=== PATIENT | female | born 1940 | race Caucasian/White ===

== ENCOUNTER 2020-11-19 00:35 | Inpatient (IN) ==
[2020-11-19] MEDS ORDERED: dexAMETHasone**PF** 10 MG/ML VIAL IV ONE (00:41)
[2020-11-19] MEDS ORDERED: ALBUT/IPRATROP 3MG/0.5MG NEB 3 ML VIAL INH STA (00:41)
[2020-11-19] MEDS ORDERED: SODIUM CHLORIDE 0.9% 1000ML 1,000 ML IV STA (00:44)
[2020-11-19] MEDS ORDERED: SODIUM CHLORIDE 0.9% 1000ML 250 ML IV ONE (00:44)
[2020-11-19 01:19] LABS: Influenza A virus by PCR Negative (Negative); Influenza B virus by PCR Negative (Negative)
[2020-11-19 01:33] LABS: Hematocrit (blood only) 35.6 % (37-47); Hemoglobin 11.2 g/dL (12.0-16.0); Mean Corpuscular Hemoglobin 25.2 pg (25-34); Mean Corpuscular Hgb Conc 31.5 g/dL (32-36); Mean Platelet Volume 9.2 fL (7.4-10.4); Platelet Count 457 K/uL (130-400); RDW Standard Deviation 46.6 fL (36.4-46.3); Red Blood Count 4.45 M/uL (4.2-5.4); White Blood Count 17.84 K/uL (4.8-10.8)
[2020-11-19 01:52] LABS: Alanine Aminotransferase 13 U/L (12-78); Albumin Level 2.7 gm/dl (3.4-5.0); Aspartate Aminotransferase 17 U/L (15-37); BUN Creatinine Ratio 15.3 (10-20); Blood Urea Nitrogen 11 mg/dl (7-18); Calcium 7.9 mg/dl (8.5-10.1); Carbon Dioxide 36 mmol/L (21-32); Chloride 83 mmol/L (98-107); Est GFR (African American) 94.8 ml/min; Est GFR (Non-African American) 81.8 ml/min; Glucose 158 mg/dl (70-99); Magnesium 1.7 mg/dl (1.8-2.4); Potassium 3.3 mmol/L (3.5-5.1); Sodium 126 mmol/L (136-145)
[2020-11-19 01:57] LABS: Albumin Globulin Ratio 0.7 (0.9-2); Alkaline Phosphatase 63 U/L (45-117); Bilirubin,Total 1.2 mg/dl (0.2-1); Total Protein 6.7 gm/dl (6.4-8.2); Troponin I < 0.015 ng/ml (0-0.045)
[2020-11-19 02:00] LABS: Basophils # (auto) 0.02 K/uL (0-0.2); Basophils % (auto) 0.1 %; Immature Granulocytes # (auto) 0.35 K/uL (0.00-0.02); Lymphocytes # (auto) 0.79 K/uL (1.2-3.4); Lymphocytes % (auto) 4.4 %; Monocytes # (auto) 0.88 K/uL (0.11-0.59); Monocytes % (auto) 4.9 %; Neutrophils % (auto) 88.6 %
[2020-11-19] MEDS ORDERED: PIPERACILLIN/TAZOBACTAM 4.5 GM/120 ML BAG IV ONE (02:00)
[2020-11-19] MEDS ORDERED: PIPERACILL/TAZOBAC CONSULT ACTIVE PRN (02:00)
[2020-11-19] MEDS ORDERED: ACETAMINOPHEN 1000 MG/100 ML IV IV STA (02:00)
[2020-11-19] MEDS ORDERED: DAPTOmycin 500 MG in SYRINGE 0 ML IV ONE (02:02)
[2020-11-19] MEDS ORDERED: VANCOMYCIN CONSULT ACTIVE PRN (02:13)
[2020-11-19] MEDS ORDERED: VANCOMYCIN HCL 1,800 MG in SODIUM CHLORIDE 0.9% 500 ML IV ONE (02:13)
[2020-11-19 02:21] LABS: Appearance Urine Clear (Clear); Bilirubin Urine Negative (Negative); Blood Urine Negative (Negative); Color Urine Yellow; Glucose Urine UA Negative (Negative); Ketones Urine Trace (Negative); Leukocyte Esterase Urine Negative (Negative); Nitrite Urine Negative (Negative); Protein Urine Negative (Negative); Specific Gravity Urine 1.014 (1.000-1.030); Urobilinogen Urine Negative (Negative)
[2020-11-19] MEDS ORDERED: MAGNESIUM SULFATE / D5W 1 GM/100 ML BAG IV STA (02:21)
[2020-11-19] MEDS ORDERED: VANCOMYCIN HCL 1,750 MG in SODIUM CHLORIDE 0.9% 500 ML IV STA (02:29)
--- NOTE | 2020-11-19 03:04 | History & Physical Report ---
Date of Service November 19, 2020 Assessment & Plan (1) Acute hypoxemic respiratory failure: Plan: Secondary to COPD exacerbation from severe COVID-19 pneumonia Failed outpatient treatment Sepsis secondary to above Diarrhea rule out C. difficile chronic diastolic heart failure (EF 60 to 65%, TTE 2011), equivocal volume status hypertension, BP on the lower side hyperlipidemia, on statin Rx hx CVA Acute on chronic hyponatremia secondary to illness chronic anemia, hemoglobin close to at baseline prediabetes, no recent outpatient hemoglobin A1c Hypokalemia secondary to diuretic Rx, diarrhea Leg swelling rule out DVT Past tobacco abuse dementia PCU Continue BiPAP Baseline ABG CS, check lactic acid, Doxycycline Decadron and Remdesivir for severe COVID-19 pneumonia (Patient niece agreeable to potential adverse effects from remdesivir Rx.) Nebs RTC for COPD exacerbation while on BiPAP Pulmonary consult Re: Respiratory failure, severe COVID-19 pneumonia, history COPD Stool C. difficile, Flagyl 1 dose now given sepsis criteria, Dificid if stool C. difficile positive Careful correction of sodium, hyponatremia work-up, hold SSRI for now Replace electrolytes, hold home diuretic until patient euvolemic Check hemoglobin A1c LE venous Dopplers ro DVT DVT prophylaxis per Lovenox subcu DNR as per patient's prior directives. Total critical care time was 50 minutes. Patient's niece requesting updates providers. Ms. Lydia Moreno, contact #[phone]. Text document was generated using [employer] voice recognition software. It may contain grammatical or spelling errors. Kindly contact undersigned for clarification of any documentation item in qu estion. History of Present Illness Chief Complaint: Fever, shortness of breath, hypoxemia Primary Care Provider: [facility] History obtained from patient, family, and records. Limited history from patient secondary to dementia. Medical history significant for chronic diastolic heart failure (EF 60 to 65%, TTE 2012), pulmonary hypertension, hypertension, hyperlipidemia, COPD, CVA, chronic hyponatremia, chronic anemia (baseline hemoglobin 9), prediabetes, dementia, past tobacco abuse. Last confinement February 2011 for COPD exacerbation. 10 days ago, patient noted to have shortness of breath and wheezing. COVID-19 test at custodial noted to be positive. Dexamethasone and DuoNeb treatment initiated at custodial. "Comfort measures" requested by family just for liberal fluid intake given history of CHF as per niece. Patient did not receive COVID-19 vaccination as per her preference of one of her nieces. Last night, patient noted to be febrile, short of breath, pulse ox 60s at custodial. Patient brought to the ER for evaluation. Loose stool noted at the ER. BiPAP initiated at the ER. Decadron, vancomycin and Zosyn administered at the ER. Patient denies chest pain, S OB, cough, abdominal pain symptoms. Does not know why she is in the hospital. Medical History as above Surgical History : TAHBSO, cholecystectomy Family History : Hypertension, stroke Personal/Social history : Past tobacco abuse, no EtOH intake, retired escrow secretary, custodial resident Allergies Allergy/AdvReac Type Severity Reaction Status Date / Time atorvastatin [From Lipitor] Allergy Unknown Unknown Verified 11/19/20 01:02 Cephalosporins Allergy Unknown UNKNOWN Verified 02/19/11 15:33 cholestyramine Allergy Unknown Unknown Verified 11/19/20 01:02 levofloxacin Allergy Unknown Unknown Verified 11/19/20 01:02 niacin Allergy Unknown Unknown Verified 11/19/20 01:02 [From Niaspan Extended-Release] simvastatin [From Zocor] Allergy Unknown Unknown Verified 11/19/20 01:02 [id number] Reductase Allergy Unknown muscle Verified 02/19/11 15:17 Inhibitor weakness Home Medications Medication Instructions Recorded Confirmed Type acetaminophen 325 mg tablet 650 mg PO Q4 PRN MDD 3g 11/19/20 11/19/20 History (Tylenol) albuterol sulfate 90 mcg/actuation 2 puff INHALATION Q4 PRN 11/19/20 11/19/20 History aerosol inhaler alprazolam 0.25 mg tablet 0.25 mg PO TID 11/19/20 11/19/20 History aspirin 81 mg tablet,delayed 81 mg PO DAILY 11/19/20 11/19/20 History release (Aspirin Low Dose) cholecalciferol (vitamin D3) 25 25 mcg PO DAILY 11/19/20 11/19/20 History mcg (1,000 unit) tablet (Vitamin D3) escitalopram oxalate 10 mg tablet 10 mg PO DAILY 11/19/20 11/19/20 History fluticasone furoate 100 1 ea INHALATION DAILY 11/19/20 11/19/20 History mcg-vilanterol 25 mcg/dose inhalation powder (Breo Ellipta) furosemide 40 mg tablet 40 mg PO BID 10/06/21 10/06/21 History ipratropium 0.5 mg-albuterol 3 mg 3 ml INHALATION Q4 PRN 11/19/20 11/19/20 History (2.5 mg base)/3 mL nebulization soln omeprazole 20 mg capsule,delayed 20 mg PO DAILY 11/19/20 11/19/20 History release potassium chloride 20 mEq 20 meq PO DAILY 11/19/20 11/19/20 History tablet,extended release saliva stimulant comb. no.3 1 spray MUCOUS MEMBRANE Q4 PRN 11/19/20 11/19/20 History (Biotene Moisturizing Mouth) saliva stimulant comb. no.3 1 spray MUCOUS MEMBRANE QID 11/19/20 11/19/20 History (Biotene Moisturizing Mouth) thyroid (pork) 90 mg tablet 90 mg PO DAILY 11/19/20 11/19/20 History ([place] Thyroid) Past Med/Surg History Medical History (Updated 11/19/20 @ 09:10 by Luis Lyle MD) Pneumonia due to COVID-19 virus Social History Smoking Status: Unknown if ever smoked Preferred Language: Samoan Communication Ability: Impaired Air Marshal Required: No Beliefs That Will Affect Care: None Current Living Situation Comment: unknown Feels Safe at Home: Yes Assistive Devices: BiPap Review of Systems Review of Systems: Could not be reliably obtained Physical Exam Physical Exam: GENERAL: Demented, obese, respiratory distress SKIN: Pallor, warm HEENT: Pale palpebral conjunctivae, no ptosis, dry buccal mucosa, BiPAP in place NECK : Supple, no tenderness CHEST : Decreased breath sounds, occasional expiratory wheezes, no tenderness HEART : Tachycardic, no obvious murmurs ABDOMEN: Some distention, nontender EXTREMITIES : Bilateral LE swelling, no LE tenderness, no other conspicuous def ormities noted NEUROLOGIC : Demented, slightly hard of hearing, no other gross focality Results & Data Results & Data ([facility]) Vital Signs (Past 12 Hours) Vital Signs Temp Pulse Pulse Resp BP Pulse Ox 11/19/20 02:45 116 H 28 H 91/49 L 91 11/19/20 02:30 119 H 30 H 92/42 L 91 11/19/20 02:00 121 H 32 H 94/45 L 95 11/19/20 01:50 132 H 42 H 92 10/06/21 01:30 133 H 40 H 90/38 L 92 11/19/20 01:10 127 H 125 H 40 H 90 11/19/20 00:40 39.4 C H 128 H 42 H 149/92 H 86 L Laboratory Results Laboratory Results WBC 17.84 K/uL (4.8-10.8) H 11/19/20 01:05 RBC 4.45 M/uL (4.2-5.4) 11/19/20 01:05 Hgb 11.2 g/dL (12.0-16.0) L 11/19/20 01:05 Hct 35.6 % (37-47) L 11/19/20 01:05 MCV 80.0 fL (80-100) 11/19/20 01:05 MCH 25.2 pg (25-34) 11/19/20 01:05 MCHC 31.5 g/dL (32-36) L 11/19/20 01:05 RDW Std Deviation 46.6 fL (36.4-46.3) H 11/19/20 01:05 RDW Coeff of Prema 16.0 % (11.5-14.5) H 11/19/20 01:05 Plt Count 457 K/uL (130-400) H 11/19/20 01:05 MPV 9.2 fL (7.4-10.4) 11/19/20 01:05 Immature Gran % (Auto) 2.0 % 11/19/20 01:05 Neut % (Auto) 88.6 % 11/19/20 01:05 Lymph % (Auto) 4.4 % 11/19/20 01:05 [place] % (Auto) 4.9 % 11/19/20 01:05 Eos % (Auto) 0.0 % 11/19/20 01:05 Baso % (Auto) 0.1 % 11/19/20 01:05 Neut # (Auto) 15.80 K/uL (1.4-6.5) H 11/19/20 01:05 Lymph # (Auto) 0.79 K/uL (1.2-3.4) L 11/19/20 01:05 [place] # (Auto) 0.88 K/uL (0.11-0.59) H 11/19/20 01:05 Eos # (Auto) 0.00 K/uL (0-0.5) 11/19/20 01:05 Baso # (Auto) 0.02 K/uL (0-0.2) 11/19/20 01:05 Immature Gran # (Auto) 0.35 K/uL (0.00-0.02) H 11/19/20 01:05 Sodium 126 mmol/L (136-145) L 11/19/20 01:05 Potassium 3.3 mmol/L (3.5-5.1) L 11/19/20 01:05 Chloride 83 mmol/L (98-107) L 11/19/20 01:05 Carbon Dioxide 36 mmol/L (21-32) H 11/19/20 01:05 Anion Gap 7.0 (3-11) 11/19/20 01:05 BUN 11 mg/dl (7-18) 11/19/20 01:05 Creatinine 0.70 mg/dl (0.6-1.2) 11/19/20 01:05 Est Cr Clr Drug Dosing Not Reportable 11/19/20 01:05 Est GFR ( Amer) 94.8 ml/min 11/19/20 01:05 Est GFR (Non-Af Amer) 81.8 ml/min 11/19/20 01:05 BUN/Creatinine Ratio 15.3 (10-20) 11/19/20 01:05 Glucose 158 mg/dl (70-99) H 11/19/20 01:05 Calcium 7.9 mg/dl (8.5-10.1) L 11/19/20 01:05 Magnesium 1.7 mg/dl (1.8-2.4) L 11/19/20 01:05 Total Bilirubin 1.2 mg/dl (0.2-1) H 11/19/20 01:05 AST 17 U/L (15-37) 11/19/20 01:05 ALT 13 U/L (12-78) 11/19/20 01:05 Alkaline Phosphatase 63 U/L (45-117) 11/19/20 01:05 Troponin I < 0.015 ng/ml (0-0.045) 11/19/20 01:05 Total Protein 6.7 gm/dl (6.4-8.2) 11/19/20 01:05 Albumin 2.7 gm/dl (3.4-5.0) L 11/19/20 01:05 Globulin 4.0 gm/dl (2.5-4.0) 11/19/20 01:05 Albumin/Globulin Ratio 0.7 (0.9-2) L 11/19/20 01:05 Urine Color Yellow 11/19/20 01:50 Urine Appearance Clear (Clear) 11/19/20 01:50 Urine pH 6.0 (4.5-7.5) 11/19/20 01:50 Ur Specific Ucon 1.014 (1.000-1.030) 11/19/20 01:50 Urine Protein Negative (Negative) 11/19/20 01:50 Urine Glucose (UA) Negative (Negative) 11/19/20 01:50 Urine Ketones Trace (Negative) H 11/19/20 01:50 Urine Blood Negative (Negative) 11/19/20 01:50 Urine Nitrite Negative (Negative) 11/19/20 01:50 Urine Bilirubin Negative (Negative) 11/19/20 01:50 Urine Urobilinogen Negative (Negative) 11/19/20 01:50 Ur Leukocyte Esterase Negative (Negative) 11/19/20 01:50 COVID-19 Eval Order Covid19 at [facility] 11/19/20 00:55 SARS-CoV-2 (PCR) POSITIVE (Negative) A* 10 00:55 Influ A Molecular Assay Negative (Negative) 11/19/20 00:55 Influ B Molecular Assay Negative (Negative) 11/19/20 00:55 Diagnostic Findings Chest x-ray as per my interpretation, cardiomegaly, congestion, bibasilar infiltrates EKG as per my interpretation : Rate 125, sinus tachycardia, LAD, LAFB, inferior infarct, PVCs, low voltage
[2020-11-19] MEDS ORDERED: DOXYCYCLINE HYCLATE 100 MG in DEXTROSE 5% 100 ML IV STA (03:05)
[2020-11-19] MEDS ORDERED: POTASSIUM CHLORIDE / WTR 10 MEQ/100 ML PLCT IV STA ×2 (03:10→03:23)
[2020-11-19] MEDS ORDERED: REMDESIVIR 200 MG in SODIUM CHLORIDE 0.9% 210 ML IV STA (03:16)
[2020-11-19] MEDS ORDERED: metroNIDAZOLE 500 MG/100 ML BAG IV STA (03:41)
[2020-11-19 04:10] LABS: Base Excess ABG 7.7 mEq/L (-9-1.8); HCO3 ABG 33 mmol/L (19-24); Oxygen Saturation ABG 91.1 % (90-95); PCO2 ABG 47 mmHg (35-46); PO2 ABG 60 mmHg (80-95); pH ABG 7.46 (7.35-7.45)
[2020-11-19 04:11] LABS: Allen Test Pos (Pos)
[2020-11-19] MEDS ORDERED: MAGNESIUM SULFATE / D5W 1 GM/100 ML BAG IV ONE (05:30)
[2020-11-19] MEDS ORDERED: ALPRAZolam 0.25 MG TABLET PO PRN (05:31)
[2020-11-19] MEDS ORDERED: oxyCODONE HCL IR 5 MG TAB (IMMEDIATE RELEASE) PO PRN (05:31)
[2020-11-19] MEDS ORDERED: ACETAMINOPHEN 325 MG TAB PO PRN (05:31)
[2020-11-19] MEDS ORDERED: PROMETHAZINE HCL 6.25 MG in SODIUM CHLORIDE 0.9% 50 ML IV PRN (05:31)
[2020-11-19] MEDS: POTASSIUM CHLORIDE / WTR 10 MEQ/100 ML PLCT IV SCH ×6 (05:42→12:03)
[2020-11-19 06:01] LABS: C Reactive Protein 4.27 mg/dl (0-0.29); NT Pro B Type Natriuretic Pept 353 pg/ml (0-1800); Thyroid Stimulating Hormone 0.283 uIu/ml (0.300-4.500)
[2020-11-19 06:14] LABS: T4 Free Thyroxine 1.16 ng/dl (0.8-1.6)
--- NOTE | 2020-11-19 06:56 | Emergency Department Note ---
Past Med/Surg History Social History Smoking Status: Unknown if ever smoked Preferred Language: Setswana Communication Ability: Impaired Tank[place] Required: No Beliefs That Will Affect Care: None Current Living Situation Comment: unknown Feels Safe at Home: Yes Allergies Allergies Allergy/AdvReac Type Severity Reaction Status Date / Time atorvastatin [From Lipitor] Allergy Unknown Unknown Verified 11/19/20 01:02 Cephalosporins Allergy Unknown UNKNOWN Verified 02/19/11 15:33 cholestyramine Allergy Unknown Unknown Verified 11/19/20 01:02 levofloxacin Allergy Unknown Unknown Verified 11/19/20 01:02 niacin Allergy Unknown Unknown Verified 11/19/20 01:02 [From Niaspan Extended-Release] simvastatin [From Zocor] Allergy Unknown Unknown Verified 11/19/20 01:02 Mymjpbd-Isq-Wxs Reductase Allergy Unknown muscle Verified 02/19/11 15:17 Inhibitor weakness Home Meds Home Medications Medication Instructions Recorded Confirmed acetaminophen 325 mg tablet 650 mg PO Q4 PRN MDD 3g 11/19/20 11/19/20 (Tylenol) albuterol sulfate 90 mcg/actuation 2 puff INHALATION Q4 PRN 11/19/20 11/19/20 aerosol inhaler alprazolam 0.25 mg tablet 0.25 mg PO TID 11/19/20 11/19/20 aspirin 81 mg tablet,delayed 81 mg PO DAILY 11/19/20 11/19/20 release (Aspirin Low Dose) cholecalciferol (vitamin D3) 25 25 mcg PO DAILY 11/19/20 11/19/20 mcg (1,000 unit) tablet (Vitamin D3) escitalopram oxalate 10 mg tablet 10 mg PO DAILY 11/19/20 11/19/20 fluticasone furoate 100 1 ea INHALATION DAILY 11/19/20 11/19/20 mcg-vilanterol 25 mcg/dose inhalation powder (Breo Ellipta) furosemide 40 mg tablet 40 mg PO BID 11/19/20 11/19/20 ipratropium 0.5 mg-albuterol 3 mg 3 ml INHALATION Q4 PRN 11/19/20 11/19/20 (2.5 mg base)/3 mL nebulization soln omeprazole 20 mg capsule,delayed 20 mg PO DAILY 11/19/20 11/19/20 release potassium chloride 20 mEq 20 meq PO DAILY 11/19/20 11/19/20 tablet,extended release saliva stimulant comb. no.3 1 spray MUCOUS MEMBRANE Q4 PRN 11/19/20 11/19/20 (Biotene Moisturizing Mouth) saliva stimulant comb. no.3 1 spray MUCOUS MEMBRANE QID 11/19/20 11/19/20 (Biotene Moisturizing Mouth) thyroid (pork) 90 mg tablet 90 mg PO DAILY 11/19/20 11/19/20 ([place] Thyroid) Results & Data (ED) Vital Signs Vital Signs - 24 hr 11/19/20 00:40 11/19/20 01:10 11/19/20 01:30 Temperature 39.4 C H Temperature Source Rectal Pulse Rate 128 H 127 H 133 H Pulse Rate [Apical] 125 H Pulse Rate from SpO2 Sensor 124 H 133 H Pulse Rhythm Regular Pulse Strength Normal Respiratory Rate 42 H 40 H 40 H Respiratory Effort / Characteristics Spontaneous Accessory Muscle Use Labored Short of Breath Spontaneous Short of Breath Respiratory Depth Retractive Normal Respiratory Pattern Tachypnea Tachypnea Blood Pressure 149/92 H 90/38 L Blood Pressure Mean 111 55 Pulse Oximetry 86 L 90 92 Oxygen Delivery Method Non-rebreather BiPAP BiPAP Oxygen Flow Rate 15 Fraction of Inspired Oxygen 100 Sepsis Recent Fever Within 48 Hours Yes Sepsis New/Unexplained Change in Mental Status No Sepsis Action Taken by Nursing Physician Notified 11/19/20 01:50 11/19/20 02:00 11/19/20 02:30 Temperature Temperature Source Pulse Rate 132 H 121 H 119 H Pulse Rate [Apical] Pulse Rate from SpO2 Sensor 130 H 121 H 119 H Pulse Rhythm Pulse Strength Respiratory Rate 42 H 32 H 30 H Respiratory Effort / Characteristics Respiratory Depth Respiratory Pattern Blood Pressure 94/45 L 92/42 L Blood Pressure Mean 61 58 Pulse Oximetry 92 95 91 Oxygen Delivery Method BiPAP BiPAP BiPAP Oxygen Flow Rate Fraction of Inspired Oxygen Sepsis Recent Fever Within 48 Hours Sepsis New/Unexplained Change in Mental Status Sepsis Action Taken by Nursing 11/19/20 02:45 11/19/20 03:00 Temperature Temperature Source Pulse Rate 116 H 118 H Pulse Rate [Apical] Pulse Rate from SpO2 Sensor 116 H 118 H Pulse Rhythm Pulse Strength Respiratory Rate 28 H 38 H Respiratory Effort / Characteristics Respiratory Depth Respiratory Pattern Blood Pressure 91/49 L 93/68 L Blood Pressure Mean 63 76 Pulse Oximetry 91 90 Oxygen Delivery Method BiPAP BiPAP Oxygen Flow Rate Fraction of Inspired Oxygen Sepsis Recent Fever Within 48 Hours Sepsis New/Unexplained Change in Mental Status Sepsis Action Taken by Nursing Laboratory Data Result diagrams: 11/19/20 01:05 11/19/20 01:05 Lab Results 11/19/20 11/19/20 11/19/20 Range/Units 00:55 00:55 00:55 WBC (4.8-10.8) K/uL RBC (4.2-5.4) M/uL Hgb (12.0-16.0) g/dL Hct (37-47) % MCV (80-100) fL MCH (25-34) pg MCHC (32-36) g/dL RDW Std Deviation (36.4-46.3) fL RDW Coeff of Prema (11.5-14.5) % Plt Count (130-400) K/uL MPV (7.4-10.4) fL Immature Gran % (Auto) % Neut % (Auto) % Lymph % (Auto) % Fallon % (Auto) % Eos % (Auto) % Baso % (Auto) % Neut # (Auto) (1.4-6.5) K/uL Lymph # (Auto) (1.2-3.4) K/uL Fallon # (Auto) (0.11-0.59) K/uL Eos # (Auto) (0-0.5) K/uL Baso # (Auto) (0-0.2) K/uL Immature Gran # (Auto) (0.00-0.02) K/uL Sodium (136-145) mmol/L Potassium (3.5-5.1) mmol/L Chloride (98-107) mmol/L Carbon Dioxide (21-32) mmol/L Anion Gap (3-11) BUN (7-18) mg/dl Creatinine (0.6-1.2) mg/dl Est Cr Clr Drug Dosing Est GFR ( Amer) ml/min Est GFR (Non-Af Amer) ml/min BUN/Creatinine Ratio (10-20) Glucose (70-99) mg/dl Osmolality (280-300) mOsm/kg Lactate (0.4-2.0) mmol/L Calcium (8.5-10.1) mg/dl Magnesium (1.8-2.4) mg/dl Total Bilirubin (0.2-1) mg/dl AST (15-37) U/L ALT (12-78) U/L Alkaline Phosphatase (45-117) U/L Troponin I (0-0.045) ng/ml C-Reactive Protein (0-0.29) mg/dl NT-Pro-B Natriuret Pep (0-1800) pg/ml Total Protein (6.4-8.2) gm/dl Albumin (3.4-5.0) gm/dl Globulin (2.5-4.0) gm/dl Albumin/Globulin Ratio (0.9-2) Procalcitonin (0-0.5) ng/ml TSH (0.300-4.500) uIu/ml Free T4 (0.8-1.6) ng/dl Urine Color Urine Appearance (Clear) Urine pH (4.5-7.5) Ur Specific Edward (1.000-1.030) Urine Protein (Negative) Urine Glucose (UA) (Negative) Urine Ketones (Negative) Urine Blood (Negative) Urine Nitrite (Negative) Urine Bilirubin (Negative) Urine Urobilinogen (Negative) Ur Leukocyte Esterase (Negative) Urine Osmolality (500-800) mOsm/kg Ur Random Sodium mmol/L COVID-19 Eval Order Covid19 at [facility] SARS-CoV-2 (PCR) POSITIVE A* (Negative) Influ A Molecular Assay Negative (Negative) Influ B Molecular Assay Negative (Negative) 11/19/20 11/19/20 11/19/20 Range/Units 01:05 01:05 01:05 WBC 17.84 H (4.8-10.8) K/uL RBC 4.45 (4.2-5.4) M/uL Hgb 11.2 L (12.0-16.0) g/dL Hct 35.6 L (37-47) % MCV 80.0 (80-100) fL MCH 25.2 (25-34) pg MCHC 31.5 L (32-36) g/dL RDW Std Deviation 46.6 H (36.4-46.3) fL RDW Coeff of Prema 16.0 H (11.5-14.5) % Plt Count 457 H (130-400) K/uL MPV 9.2 (7.4-10.4) fL Immature Gran % (Auto) 2.0 % Neut % (Auto) 88.6 % Lymph % (Auto) 4.4 % Fallon % (Auto) 4.9 % Eos % (Auto) 0.0 % Baso % (Auto) 0.1 % Neut # (Auto) 15.80 H (1.4-6.5) K/uL Lymph # (Auto) 0.79 L (1.2-3.4) K/uL Fallon # (Auto) 0.88 H (0.11-0.59) K/uL Eos # (Auto) 0.00 (0-0.5) K/uL Baso # (Auto) 0.02 (0-0.2) K/uL Immature Gran # (Auto) 0.35 H (0.00-0.02) K/uL Sodium 126 L (136-145) mmol/L Potassium 3.3 L (3.5-5.1) mmol/L Chloride 83 L (98-107) mmol/L Carbon Dioxide 36 H (21-32) mmol/L Anion Gap 7.0 (3-11) BUN 11 (7-18) mg/dl Creatinine 0.70 (0.6-1.2) mg/dl Est Cr Clr Drug Dosing Not Reportable Est GFR ( Amer) 94.8 ml/min Est GFR (Non-Af Amer) 81.8 ml/min BUN/Creatinine Ratio 15.3 (10-20) Glucose 158 H (70-99) mg/dl Osmolality (280-300) mOsm/kg Lactate (0.4-2.0) mmol/L Calcium 7.9 L (8.5-10.1) mg/dl Magnesium 1.7 L (1.8-2.4) mg/dl Total Bilirubin 1.2 H (0.2-1) mg/dl AST 17 (15-37) U/L ALT 13 (12-78) U/L Alkaline Phosphatase 63 (45-117) U/L Troponin I < 0.015 (0-0.045) ng/ml C-Reactive Protein 4.27 H (0-0.29) mg/dl NT-Pro-B Natriuret Pep 353 (0-1800) pg/ml Total Protein 6.7 (6.4-8.2) gm/dl Albumin 2.7 L (3.4-5.0) gm/dl Globulin 4.0 (2.5-4.0) gm/dl Albumin/Globulin Ratio 0.7 L (0.9-2) Procalcitonin 0.19 (0-0.5) ng/ml TSH 0.283 L (0.300-4.500) uIu/ml Free T4 1.16 (0.8-1.6) ng/dl Urine Color Urine Appearance (Clear) Urine pH (4.5-7.5) Ur Specific Edward (1.000-1.030) Urine Protein (Negative) Urine Glucose (UA) (Negative) Urine Ketones (Negative) Urine Blood (Negative) Urine Nitrite (Negative) Urine Bilirubin (Negative) Urine Urobilinogen (Negative) Ur Leukocyte Esterase (Negative) Urine Osmolality (500-800) mOsm/kg Ur Random Sodium mmol/L COVID-19 Eval Order SARS-CoV-2 (PCR) (Negative) Influ A Molecular Assay (Negative) Influ B Molecular Assay (Negative) 11/19/20 11/19/20 11/19/20 Range/Units 01:05 01:50 01:50 WBC (4.8-10.8) K/uL RBC (4.2-5.4) M/uL Hgb (12.0-16.0) g/dL Hct (37-47) % MCV (80-100) fL MCH (25-34) pg MCHC (32-36) g/dL RDW Std Deviation (36.4-46.3) fL RDW Coeff of Prema (11.5-14.5) % Plt Count (130-400) K/uL MPV (7.4-10.4) fL Immature Gran % (Auto) % Neut % (Auto) % Lymph % (Auto) % Fallon % (Auto) % Eos % (Auto) % Baso % (Auto) % Neut # (Auto) (1.4-6.5) K/uL Lymph # (Auto) (1.2-3.4) K/uL Fallon # (Auto) (0.11-0.59) K/uL Eos # (Auto) (0-0.5) K/uL Baso # (Auto) (0-0.2) K/uL Immature Gran # (Auto) (0.00-0.02) K/uL Sodium (136-145) mmol/L Potassium (3.5-5.1) mmol/L Chloride (98-107) mmol/L Carbon Dioxide (21-32) mmol/L Anion Gap (3-11) BUN (7-18) mg/dl Creatinine (0.6-1.2) mg/dl Est Cr Clr Drug Dosing Est GFR ( Amer) ml/min Est GFR (Non-Af Amer) ml/min BUN/Creatinine Ratio (10-20) Glucose (70-99) mg/dl Osmolality 265 L (280-300) mOsm/kg Lactate (0.4-2.0) mmol/L Calcium (8.5-10.1) mg/dl Magnesium (1.8-2.4) mg/dl Total Bilirubin (0.2-1) mg/dl AST (15-37) U/L ALT (12-78) U/L Alkaline Phosphatase (45-117) U/L Troponin I (0-0.045) ng/ml C-Reactive Protein (0-0.29) mg/dl NT-Pro-B Natriuret Pep (0-1800) pg/ml Total Protein (6.4-8.2) gm/dl Albumin (3.4-5.0) gm/dl Globulin (2.5-4.0) gm/dl Albumin/Globulin Ratio (0.9-2) Procalcitonin (0-0.5) ng/ml TSH (0.300-4.500) uIu/ml Free T4 (0.8-1.6) ng/dl Urine Color Yellow Urine Appearance Clear (Clear) Urine pH 6.0 (4.5-7.5) Ur Specific Edward 1.014 (1.000-1.030) Urine Protein Negative (Negative) Urine Glucose (UA) Negative (Negative) Urine Ketones Trace H (Negative) Urine Blood Negative (Negative) Urine Nitrite Negative (Negative) Urine Bilirubin Negative (Negative) Urine Urobilinogen Negative (Negative) Ur Leukocyte Esterase Negative (Negative) Urine Osmolality 398 L (500-800) mOsm/kg Ur Random Sodium mmol/L COVID-19 Eval Order SARS-CoV-2 (PCR) (Negative) Influ A Molecular Assay (Negative) Influ B Molecular Assay (Negative) 11/19/20 11/19/20 Range/Units 01:50 03:05 WBC (4.8-10.8) K/uL RBC (4.2-5.4) M/uL Hgb (12.0-16.0) g/dL Hct (37-47) % MCV (80-100) fL MCH (25-34) pg MCHC (32-36) g/dL RDW Std Deviation (36.4-46.3) fL RDW Coeff of Prema (11.5-14.5) % Plt Count (130-400) K/uL MPV (7.4-10.4) fL Immature Gran % (Auto) % Neut % (Auto) % Lymph % (Auto) % Fallon % (Auto) % Eos % (Auto) % Baso % (Auto) % Neut # (Auto) (1.4-6.5) K/uL Lymph # (Auto) (1.2-3.4) K/uL Fallon # (Auto) (0.11-0.59) K/uL Eos # (Auto) (0-0.5) K/uL Baso # (Auto) (0-0.2) K/uL Immature Gran # (Auto) (0.00-0.02) K/uL Sodium (136-145) mmol/L Potassium (3.5-5.1) mmol/L Chloride (98-107) mmol/L Carbon Dioxide (21-32) mmol/L Anion Gap (3-11) BUN (7-18) mg/dl Creatinine (0.6-1.2) mg/dl Est Cr Clr Drug Dosing Est GFR ( Amer) ml/min Est GFR (Non-Af Amer) ml/min BUN/Creatinine Ratio (10-20) Glucose (70-99) mg/dl Osmolality (280-300) mOsm/kg Lactate 2.3 H* (0.4-2.0) mmol/L Calcium (8.5-10.1) mg/dl Magnesium (1.8-2.4) mg/dl Total Bilirubin (0.2-1) mg/dl AST (15-37) U/L ALT (12-78) U/L Alkaline Phosphatase (45-117) U/L Troponin I (0-0.045) ng/ml C-Reactive Protein (0-0.29) mg/dl NT-Pro-B Natriuret Pep (0-1800) pg/ml Total Protein (6.4-8.2) gm/dl Albumin (3.4-5.0) gm/dl Globulin (2.5-4.0) gm/dl Albumin/Globulin Ratio (0.9-2) Procalcitonin (0-0.5) ng/ml TSH (0.300-4.500) uIu/ml Free T4 (0.8-1.6) ng/dl Urine Color Urine Appearance (Clear) Urine pH (4.5-7.5) Ur Specific Edward (1.000-1.030) Urine Protein (Negative) Urine Glucose (UA) (Negative) Urine Ketones (Negative) Urine Blood (Negative) Urine Nitrite (Negative) Urine Bilirubin (Negative) Urine Urobilinogen (Negative) Ur Leukocyte Esterase (Negative) Urine Osmolality (500-800) mOsm/kg Ur Random Sodium 15 mmol/L COVID-19 Eval Order SARS-CoV-2 (PCR) (Negative) Influ A Molecular Assay (Negative) Influ B Molecular Assay (Negative) Administered Medications Sodium Chloride (Nss 1000ml) 1,000 mls @ 125 mls/hr IV .Q8H STA Stop: 11/19/20 08:43 Last Infusion: 11/19/20 06:23 Dose: 0 mls/hr Documented by: [id number] Admin: 11/19/20 01:25 Dose: 125 mls/hr Documented by: [id number] Magnesium Sulfate/Dextrose (Magnesium Sulfate / D5w) 1 gm in 100 mls @ 50 mls/hr IV ONE ONE Stop: 11/19/20 07:29 Last Admin: 11/19/20 05:42 Dose: 50 mls/hr Documented by: [id number] Potassium Chloride (K Pierre / Wtr) 10 meq in 100 mls @ 100 mls/hr IV Q1H APRYL Stop: 11/19/20 11:44 Last Admin: 11/19/20 06:44 Dose: 100 mls/hr Documented by: [id number] Infusion: 11/19/20 06:42 Dose: 100 mls/hr Documented by: [id number] Admin: 11/19/20 05:42 Dose: 100 mls/hr Documented by: [id number] Discontinued Medications Acetaminophen (Acetaminophen 1000 Mg/100 Ml Iv) 1,000 mg IV NOW STA Stop: 11/19/20 02:01 Last Admin: 11/19/20 02:26 Dose: 1,000 mg Documented by: [id number] Albuterol (Albut/Ipratrop 3mg/0.5mg Neb 3 Ml Vial) 12 ml INH ONE STA Stop: 11/19/20 00:42 Last Admin: 11/19/20 01:09 Dose: 12 ml Documented by: [id number] Dexamethasone Sodium Phosphate (DexamethasonePf 10 Mg/Ml Vial) 6 mg IV NOW ONE Stop: 11/19/20 00:42 Last Admin: 11/19/20 00:51 Dose: 6 mg Documented by: [id number] Sodium Chloride (Nss 1000ml) 250 mls @ 999 mls/hr IV .Q16M ONE Stop: 11/19/20 00:59 Last Infusion: 11/19/20 02:03 Dose: 0 mls/hr Documented by: [id number] Admin: 11/19/20 01:25 Dose: 999 mls/hr Documented by: [id number] Piperacillin Sod/Tazobactam Sod (Zosyn) 4.5 gm in 120 mls @ 240 mls/hr IV NOW ONE Stop: 11/19/20 02:29 Last Infusion: 11/19/20 02:57 Dose: 0 mls/hr Documented by: [id number] Admin: 11/19/20 02:27 Dose: 240 mls/hr Documented by: [id number] Daptomycin 500 mg/ Syringe 10 mls @ 5 mls/min IV NOW ONE; Protocol Stop: 11/19/20 02:03 Last Admin: 11/19/20 02:23 Dose: Not Given Documented by: [id number] Magnesium Sulfate/Dextrose (Magnesium Sulfate / D5w) 1 gm in 100 mls @ 50 mls/hr IV ONE STA Stop: 11/19/20 04:20 Last Infusion: 11/19/20 04:17 Dose: 0 mls/hr Documented by: [id number] Admin: 11/19/20 02:26 Dose: 50 mls/hr Documented by: [id number] Vancomycin HCl 1,750 mg/ (Sodium Chloride) 535 mls @ 200 mls/hr IV NOW STA Stop: 11/19/20 05:09 Last Infusion: 11/19/20 06:29 Dose: 0 mls/hr Documented by: [id number] Admin: 11/19/20 03:06 Dose: 200 mls/hr Documented by: [id number] Doxycycline Hyclate 100 mg/ (Dextrose) 110 mls @ 50 mls/hr IV NOW STA Stop: 11/19/20 05:16 Last Infusion: 11/19/20 06:24 Dose: 0 mls/hr Documented by: [id number] Admin: 11/19/20 04:16 Dose: 50 mls/hr Documented by: [id number] Remdesivir 200 mg/ Sodium (Chloride) 250 mls @ 125 mls/hr IV ONE STA; Protocol Stop: 11/19/20 05:15 Last Infusion: 11/19/20 06:24 Dose: 0 mls/hr Documented by: [id number] Admin: 11/19/20 04:16 Dose: 125 mls/hr Documented by: [id number] Potassium Chloride (K Pierre / Wtr) 10 meq in 100 mls @ 100 mls/hr IV ONE STA Stop: 11/19/20 04:22 Last Infusion: 11/19/20 06:24 Dose: 0 mls/hr Documented by: [id number] Admin: 11/19/20 04:17 Dose: 100 mls/hr Documented by: [id number] Metronidazole (Flagyl) 500 mg in 100 mls @ 100 mls/hr IV NOW STA Stop: 11/19/20 04:40 Last Admin: 11/19/20 06:44 Dose: 100 mls/hr Documented by: [id number] Discharge Plan Visit Data Chief Complaint: Shortness of Breath/Dyspnea Stated Complaint: Breathing Difficulty ED Provider: Rdaha Jackson Patient Disposition: Admitted As Inpatient Discharge Instructions Interventions: ED Discharge Assessment Last Done: 11/19/20 04:30
[2020-11-19] MEDS ORDERED: IPRATROPIUM BROMIDE NEB SOLN 0.02% 2.5 ML VIAL INH SCH (07:00)
[2020-11-19] MEDS ORDERED: XOPENEX/ATROVENT 1.25mg/0.5MG NEB COMBO NEB SCH (07:00)
[2020-11-19] MEDS ORDERED: LEVALBUTEROL 1.25MG/0.5ML NEB INH SCH (07:00)
[2020-11-19] MEDS: ENOXAPARIN INJ 30 MG/0.3 ML SYR SQ SCH (08:25)
--- NOTE | 2020-11-19 08:30 | XRay Report ---
XR chest 1V portable INDICATION: MN ^Y ^Dyspnea . TECHNIQUE: Single frontal radiograph of the chest was obtained. Comparison: Comparison is made to chest one view 02/20/2011 FINDINGS: No lines and tubes are seen. Cardiomegaly is noted. Bilateral lower lung predominant airspace opaciti es are seen. Prominence of vasculature and Joseluis B lines are noted. Small bilateral pleural effusion s are seen. IMPRESSION: 1. Bilateral airspace opacities which may represent atelectasis, pneumonia, and/or aspiration. 2. Moderate pulmonary edema. 3. Cardiomegaly. 4. Small bilateral pleural effusions. ACT 112: Negative or not required by law. Electronically signed by: Yunier Ugalde M.D. 11/19/2020 8:28 AM
[2020-11-19 08:46] LABS: Estimated Average Glucose 134 mg/dl; Hemoglobin A1C 6.3 % (4.5-5.6)
[2020-11-19] MEDS: PANTOprazole 40 MG TAB PO SCH (09:05)
[2020-11-19] MEDS: ASPIRIN 81 MG ECTAB PO SCH (09:05)
[2020-11-19] MEDS: ARMOUR THYROID 30 MG TAB PO SCH (09:06)
--- NOTE | 2020-11-19 09:16 | Pulmonary Consultation ---
Date of Consultation November 19, 2020 Assessment & Plan (1) Acute hypoxemic respiratory failure: (2) Pneumonia due to COVID-19 virus: (3) Severe dementia: 80-year-old female with history of dementia, COPD, hypertension, obesity, GERD, diabetes and anemia of chronic disease presenting to the hospital due to COVID-19 viral pneumonia. She is currently requiring an oxygen mask. Recommend weaning as tolerated. Can use high flow nasal cannula as needed to maintain saturations above 90%. At this time, the patient does not qualify for baricitinib or tocilizumab therapy. Would recommend diuresing the patient given that she is 2.7 L positive on input and output. Her chest x-ray appears to have a degree of volume overload. Otherwise, continue usual care for COVID-19 viral pneumonia including Decadron, awake proning, DVT prophylaxis, pulmonary toileting with incentive spirometry and flutter valve. I am not sure how much she is going to be able to participate in proning or pulmonary toileting given her baseline severe dementia. Continue as needed DuoNebs. She is not bronchospastic currently. Her ABG is consistent with a mixed acid-base disorder. She currently has an acute respiratory alkalosis in addition to a chronic hypercapnic respiratory failure with a compensated chronic metabolic alkalosis. Additionally, her lactate is trending upwards. Her mortality is very high at this time. These findings are secondary to her acute viral pneumonia which is causing decreased oxygen delivery, tissue hypoxemia and acidosis at the cellular level. Consider palliative care consultation given the patient's advanced age, underlying dementia and severe acute illness. Pulmonary will sign off at this time. Please call with questions. Thank you for the consult. This note was dictated using voice recognition software and may include grammatical errors, extra words, word substitutions and other inaccuracies due to errors in the voice recognition software and differences in speech patterns. History of Present Illness Reason for Consultation: COVID-19 viral pneumonia and hypoxemic respiratory failure Attending Physician: Samantha Georges MD History of Present Illness [id number] female with a past medical history of dementia who resides in a usp, heart failure, hypertension, hyperlipidemia, anemia of chronic disease, diabetes and prior tobacco abuse who presented to the hospital last night due to increasing shortness of breath and wheezing. She was found to have COVID-19. She is currently on Decadron and DuoNeb treatments. Decadron was initiated in the usp. She is unvaccinated. Apparently, last night she was found to be hypoxemic to the 60s while in her usp. She has been initiated on BiPAP therapy. The patient is unable to give any history given her baseline dementia. I reviewed the chart and I was able to discuss her case with the nurse at bedside. Patient does not know where she currently is. She is wanting to use the bathroom. She denies any shortness of breath or chest pain. She is currently on oxygen mask set at 15 L/min. She does not appear to be in respiratory distress. She is currently on doxycycline. She received vancomycin and Zosyn in the ER. She is also on remdesivir and Decadron 6 mg daily. Her procalcitonin was 0.19 on admission. White count is elevated to 17,840. Hyponatremia with a sodium 127. Lactate 2.3. CRP elevated to 4.27. Her input and output is currently 2.765 L positive. Chest x-ray reviewed with increased interstitial markings, bilateral diaphragmatic blunting and lower lobe predominant airspace disease. Allergies Allergy/AdvReac Type Severity Reaction Status Date / Time atorvastatin [From Lipitor] Allergy Unknown Unknown Verified 11/19/20 01:02 Cephalosporins Allergy Unknown UNKNOWN Verified 02/19/11 15:33 cholestyramine Allergy Unknown Unknown Verified 11/19/20 01:02 levofloxacin Allergy Unknown Unknown Verified 11/19/20 01:02 niacin Allergy Unknown Unknown Verified 11/19/20 01:02 [From Niaspan Extended-Release] simvastatin [From Zocor] Allergy Unknown Unknown Verified 11/19/20 01:02 Ookocrl-Fcz-Mdk Reductase Allergy Unknown muscle Verified 02/19/11 15:17 Inhibitor weakness Home Medications Medication Instructions Recorded Confirmed Type acetaminophen 325 mg tablet 650 mg PO Q4 PRN MDD 3g 11/19/20 11/19/20 History (Tylenol) albuterol sulfate 90 mcg/actuation 2 puff INHALATION Q4 PRN 11/19/20 11/19/20 History aerosol inhaler alprazolam 0.25 mg tablet 0.25 mg PO TID 11/19/20 11/19/20 History aspirin 81 mg tablet,delayed 81 mg PO DAILY 11/19/20 11/19/20 History release (Aspirin Low Dose) cholecalciferol (vitamin D3) 25 25 mcg PO DAILY 11/19/20 11/19/20 History mcg (1,000 unit) tablet (Vitamin D3) escitalopram oxalate 10 mg tablet 10 mg PO DAILY 11/19/20 11/19/20 History fluticasone furoate 100 1 ea INHALATION DAILY 11/19/20 11/19/20 History mcg-vilanterol 25 mcg/dose inhalation powder (Breo Ellipta) furosemide 40 mg tablet 40 mg PO BID 11/19/20 11/19/20 History ipratropium 0.5 mg-albuterol 3 mg 3 ml INHALATION Q4 PRN 11/19/20 11/19/20 History (2.5 mg base)/3 mL nebulization soln omeprazole 20 mg capsule,delayed 20 mg PO DAILY 11/19/20 11/19/20 History release potassium chloride 20 mEq 20 meq PO DAILY 11/19/20 11/19/20 History tablet,extended release saliva stimulant comb. no.3 1 spray MUCOUS MEMBRANE Q4 PRN 11/19/20 11/19/20 History (Biotene Moisturizing Mouth) saliva stimulant comb. 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 No respiratory distress. Oxygen mask in place. Eyes: Pupils are equal round and reactive to light. Conjunctivae are normal. Anicteric sclera. Ears nose, mouth and throat: Oxygen mask in place. No obvious facial deformities. Neck: Trachea is midline. Visual inspection is normal. Respiratory: Mild tachypnea. No use of accessory muscles. No wheezes. Diminished breath sounds bilaterally. Cardiovascular: Regular rate and rhythm. No murmurs. Trace edema. Gastrointestinal: Normal bowel sounds, soft, nontender and nondistended. No hepatosplenomegaly noted. Musculoskeletal: No cyanosis. Patient is able to move all extremities. Skin: No rashes, warm dry and intact. Neurologic: No obvious focal neurological deficits seen. Psychiatric: Confused and anxious appearing. Results & Data Results & Data ([facility]) Vital Signs (Past 12 Hours) Vital Signs Temp Pulse Pulse Resp BP BP Pulse Ox 11/19/20 08:00 98.2 F 100 H 22 114/74 90 11/19/20 07:08 90 89 21 95 11/19/20 04:45 98.4 F 94 H 22 107/64 94 11/19/20 04:24 99 H 20 92 11/19/20 04:15 101 H 22 113/67 91 11/19/20 04:01 123 H 22 100/59 L 92 11/19/20 03:45 122 H 27 H 97/51 L 90 11/19/20 03:30 111 H 35 H 106/59 L 91 11/19/20 03:15 115 H 30 H 104/56 L 90 11/19/20 03:00 118 H 38 H 93/68 L 90 11/19/20 02:45 116 H 28 H 91/49 L 91 11/19/20 02:30 119 H 30 H 92/42 L 91 11/19/20 02:00 121 H 32 H 94/45 L 95 11/19/20 01:50 132 H 42 H 92 11/19/20 01:30 133 H 40 H 90/38 L 92 11/19/20 01:10 127 H 125 H 40 H 90 11/19/20 00:40 102.9 F H 128 H 42 H 149/92 H 86 L Laboratory Results Vital signs, labs and imaging reviewed as per above. ABG with evidence of mixed acid-base disorder. PG Care Time/CCT Total # of Minutes Spent Total Time Spent with Patient: Total time spent is greater than 50% in coordination of care (as documented) at patient's floor/unit and/or counseling patient: Coding Level of Care Code 67296 Initial Inpt Care Lvl 3 Diagnoses Acute hypoxemic respiratory failure J96.01 Pneumonia due to COVID-19 virus U07.1; J12.82 Severe dementia F03.90
[2020-11-19] MEDS ORDERED: LEVALBUTEROL 1.25MG/0.5ML NEB INH PRN (10:01)
[2020-11-19] MEDS ORDERED: IPRATROPIUM BROMIDE NEB SOLN 0.02% 2.5 ML VIAL INH PRN (10:01)
--- NOTE | 2020-11-19 15:45 | Ultrasound Report ---
US venous doppler LE BI INDICATION: MN ^Y ^covid DNR ^leg swelling . COMPARISON: None available at the time of this dictation. TECHNIQUE: Bilateral lower extremity real-time compression venous ultrasound with Color Doppler imagi ng. Utilizing real-time ultrasonic imaging multiple real time high-resolution ultrasonic images with comp ression and noncompression maneuvers of the deep venous system in addition to color doppler imaging w ere performed from the common femoral vein through the proximal calf veins. FINDINGS: Edema is seen in the bilateral lower extremities. Evaluation is limited due to patient refusal of com pression of the left leg. However, no evidence of deep venous thrombus is seen bilaterally. Impression: Limited evaluation of the left leg. No evidence of deep venous thrombus. Mild subcutaneous edema. ACT 112: Negative or not required by law. Electronically signed by: Yunier Ugalde M.D. 11/19/2020 3:43 PM
[2020-11-19] MEDS ORDERED: FUROSEMIDE 20 MG in SYRINGE 0 ML IV ONE (16:09)
--- NOTE | 2020-11-19 16:09 | Communication Note ---
Date of Service: November 19, 2020 Patient was seen and examined this morning. Remains on the BiPAP. Continue remdesivir/Decadron. Appreciate pulmonary medicine input. Give a dose of IV Lasix 20 mg now. Overall poor prognosis and looks critically ill. Palliative medicine has been consulted.
[2020-11-19] MEDS ORDERED: FUROSEMIDE 40 MG/4 ML VIAL IV ONE (16:15)
--- NOTE | 2020-11-19 17:46 | Electrocardiogram Report ---
Test Reason : Blood Pressure : / mmHG Vent. Rate : 125 BPM Atrial Rate : 125 BPM P-R Int : 182 ms QRS Dur : 070 ms QT Int : 274 ms P-R-T Axes : -10 -41 004 degrees QTc Int : 395 ms Poor data quality, interpretation may be adversely affected Sinus tachycardia with occasional Premature ventricular complexes Left axis deviation Low voltage QRS Abnormal ECG When compared with ECG of 19-FEB-2011 12:22, Premature ventricular complexes are now Present Confirmed by Gavino Seaman ([id number]) on 11/19/2020 5:46:11 PM Referred By: Eulalio Lion Confirmed By:Tru Seaman
[2020-11-19] MEDS ORDERED: methylPREDNISolone 40 MG in SYRINGE 0 ML IV ONE (19:45)
[2020-11-19] MEDS: DOXYCYCLINE HYCLATE 100 MG CAP PO SCH (21:08)
[2020-11-20] MEDS ORDERED: ALBUMIN 25% 12.5 GM/50 ML VIAL IV ONE (01:19)
[2020-11-20] MEDS ORDERED: MAGNESIUM SULFATE / D5W 1 GM/100 ML BAG IV ONE (01:19)
[2020-11-20] MEDS ORDERED: METOPROLOL TARTRATE 1 MG/ML VIAL IV STA (01:19)
[2020-11-20] MEDS ORDERED: ACETAMINOPHEN 1000 MG/100 ML IV IV ONE (01:30)
[2020-11-20] MEDS ORDERED: ACETAMINOPHEN 1,000 MG/100 ML VIAL IV ONE (01:45)
[2020-11-20 02:35] LABS: Base Excess ABG 7.1 mEq/L (-9-1.8); HCO3 ABG 32 mmol/L (19-24); Oxygen Saturation ABG 91.7 % (90-95); PCO2 ABG 46 mmHg (35-46); PO2 ABG 60 mmHg (80-95); pH ABG 7.46 (7.35-7.45)
[2020-11-20 02:36] LABS: Allen Test Pos (Pos)
[2020-11-20 02:49] LABS: Hematocrit (blood only) 32.4 % (37-47); Hemoglobin 10.2 g/dL (12.0-16.0); Mean Corpuscular Hemoglobin 24.9 pg (25-34); Mean Corpuscular Hgb Conc 31.5 g/dL (32-36); Mean Corpuscular Volume 79.2 fL (80-100); Mean Platelet Volume 9.3 fL (7.4-10.4); Platelet Count 443 K/uL (130-400); RDW Coefficient of Variation 16.1 % (11.5-14.5); RDW Standard Deviation 46.9 fL (36.4-46.3); Red Blood Count 4.09 M/uL (4.2-5.4); White Blood Count 29.68 K/uL (4.8-10.8)
[2020-11-20 02:50] LABS: Basophils # (auto) 0.02 K/uL (0-0.2); Basophils % (auto) 0.1 %; Hypochromasia Present; Immature Granulocytes % (auto) 0.7 %; Lymphocytes # (auto) 0.58 K/uL (1.2-3.4); Monocytes % (auto) 2.7 %; Neutrophils # (auto) 28.08 K/uL (1.4-6.5); Neutrophils % (auto) 94.5 %
[2020-11-20 02:51] LABS: BUN Creatinine Ratio 23.1 (10-20); Calcium 8.1 mg/dl (8.5-10.1); Creatinine Clr Calc Pharmacy 101.1 ml/min; Est GFR (African American) 107.4 ml/min; Est GFR (Non-African American) 92.6 ml/min; Magnesium 2.1 mg/dl (1.8-2.4)
[2020-11-20 03:09] LABS: Potassium 3.9 mmol/L (3.5-5.1)
[2020-11-20] MEDS ORDERED: FUROSEMIDE 20 MG in SYRINGE 0 ML IV ONE (03:10)
[2020-11-20] MEDS ORDERED: dexAMETHasone 6 MG in SYRINGE 0 ML IV SCH ×2 (03:10→09:00)
[2020-11-20] MEDS ORDERED: ALBUMIN 25% 12.5 GM/50 ML VIAL IV SCH (03:15)
[2020-11-20] MEDS ORDERED: FUROSEMIDE 40 MG/4 ML VIAL IV ONE (03:30)
[2020-11-20] MEDS: POTASSIUM CHLORIDE / WTR 10 MEQ/100 ML PLCT IV SCH ×2 (03:31→05:06)
[2020-11-20] MEDS ORDERED: XOPENEX/ATROVENT 1.25mg/0.5MG NEB COMBO NEB STA (03:54)
[2020-11-20] MEDS ORDERED: IPRATROPIUM BROMIDE NEB SOLN 0.02% 2.5 ML VIAL INH STA (04:03)
[2020-11-20] MEDS ORDERED: LEVALBUTEROL 1.25MG/0.5ML NEB INH STA (04:03)
--- NOTE | 2020-11-20 06:58 | XRay Report ---
XR chest 1V portable CLINICAL HISTORY: low o2 COMPARISON STUDY: Chest radiograph November 19, 2020. FINDINGS: [id number] bilateral pleural effusions have increased. Pulmonary edema has increased . Bibasilar opacities have increased. A probable hiatal hernia is present. Cardiomegaly is noted. The re is no pneumothorax. Incidental note is made of degenerative changes of both shoulders. IMPRESSION: 1. Increase in pulmonary edema, [id number] bilateral pleural effusions and associated bibasila r opacities which may reflect atelectasis or consolidation. Radiographic follow-up is recommended to ensure resolution. 2. Suspected hiatal hernia. ACT 112: Negative or not required by law. Electronically signed by: Dima Rutherford M.D. 11/20/2020 6:56 AM
[2020-11-20 07:40] VITALS: TEMP 97.5
[2020-11-20] MEDS: ARMOUR THYROID 30 MG TAB PO SCH (10:00)
[2020-11-20] MEDS: ASPIRIN 81 MG ECTAB PO SCH (10:00)
[2020-11-20] MEDS: DOXYCYCLINE HYCLATE 100 MG CAP PO SCH (10:00)
[2020-11-20] MEDS: PANTOprazole 40 MG TAB PO SCH (10:00)
[2020-11-20] MEDS: ENOXAPARIN INJ 30 MG/0.3 ML SYR SQ SCH (10:25)
--- NOTE | 2020-11-20 11:45 | Hospitalist Progress Note ---
Date of Service November 20, 2020 Assessment & Plan (1) Acute hypoxemic respiratory failure: Plan: Secondary to COPD exacerbation from severe COVID-19 pneumonia Failed outpatient treatment Sepsis on admission Lactic acidosis -resolved Leg swelling rule out DVT Acute on chronic hyponatremia secondary to illness Worsening diarrhea; C. difficile is negative. Hypokalemia secondary to diuretic Rx, diarrhea chronic diastolic heart failure (EF 60 to 65%, TTE 2011), equivocal volume status hypertension, BP on the lower side hyperlipidemia, on statin Rx hx CVA chronic anemia, hemoglobin close to at baseline prediabetes, no recent outpatient hemoglobin A1c Past tobacco abuse dementia This morning patient was awake and alert. She was pleasantly confused. Hemodynamically doing okay. Have been hypoxic in the mid 80s. Currently remains on the BiPAP. Worsening leukocytosis this morning in the setting of steroids. Patient remains afebrile. Blood cultures remain negative thus far. We will continue with remdesivir/Decadron. Appreciate pulmonary medicine input. Continue with pulmonary toilet/incentive spirometer and flutter therapy if patient can participate which is unlikely. Currently her overall prognosis is poor. Mortality risk is high. Palliative medicine has been consulted. [facility] RTC for COPD exacerbation while on BiPAP Stool C. difficile, Flagyl 1 dose now given sepsis criteria, Dificid if stool C. difficile positive LE venous Dopplers ro DVT is negative. DVT prophylaxis per Lovenox subcu DNR as per patient's prior directives. I did speak with a low reach her power of assistant county attorney; her niece. I did explain to her her overall poor prognosis. Will be meeting again today regarding further goals of care discussion. Total critical care time was 50 minutes. Patient's niece requesting updates providers. Ms. Lydia Moreno, contact #[phone]. Text document was generated using Kaymu voice recognition software. It may contain grammatical or spelling errors. Kindly contact undersigned for clarification of any documentation item in question. Admission and Anticipated Discharge Date Admission Date: November 19, 2020 Subjective Patient is sitting up on the bed. She remains hypoxic in the low to mid 80s. Currently on the BiPAP. Does not appear to be in any distress. She is pleasantly confused. Denies feeling short of breath, chest pain or abdominal pain. Could not obtain full review of system as patient was confused. Review of Systems Review of Systems: Unobtainable due to cognitive status Physical Exam Physical Exam: General: Awake and alert, confused, remains on BiPAP HENT: NCAT, MMM, EOMI Eyes: PERRLA Neck: Supple, normal range of motion CVS: normal rate and rhythm Resp: b/l coarse breath sounds Abdomen: Soft, ND/NT, +BS Extremities: Absence of any edema Neuro: face symmetric, no gross focal deficit appreciated Skin: no rashes/lesions/errythema MSK: no joint swelling/erythema Vivar catheter in place. Results & Data Results & Data ([facility]) Vital Signs (Past 12 Hours) Vital Signs Temp Pulse Pulse Resp BP Pulse Ox 11/20/20 07:54 94 H 32 H 86 L 11/20/20 07:39 36.4 C L 89 32 H 114/72 81 L 11/20/20 04:42 85 85 16 91 11/20/20 03:53 36.8 C 94 H 20 137/84 83 L 11/20/20 02:01 94 H 19 92
[2020-11-20 11:51] VITALS: BP 138/77
[2020-11-20] MEDS ORDERED: REMDESIVIR 100 MG in SODIUM CHLORIDE 0.9% 230 ML IV SCH (12:00)
[2020-11-20] MEDS ORDERED: SODIUM CHLORIDE 0.9% 10ML FLUSH IV SCH (12:00)
[2020-11-20 12:07] VITALS: PULSE 96; O2SAT 86
[2020-11-20] MEDS ORDERED: MoRPHine SULFATE 2 MG/ML CARP IM PRN (13:12)
--- NOTE | 2020-11-20 14:45 | Palliative Care Consultation ---
Date of Consultation November 20, 2020 Assessment & Plan (1) Acute hypoxemic respiratory failure: with covid 19 infection on bipap (2) Palliative care encounter: I talked with Trice who goes by Anna. She has limited insight into her illness but told me that she's "not good". We discussed that she is very ill and may not get better. I mentioned that sometimes in a situation like this, people decide that they would rather be comfortable than continue treatment if they are approaching their dying time. She responded that she would want to be comfortable. I did also meet with her niece, Lydia Moreno, who is her POA. She told me that Anna has been declining for some time and has been saying that she was ready to prior to her illness. She feels that Anna would want comfort directed care. She also notes that Anna is generally an anxious person and was taking lorazepam three times a day prior to her illness. We discussed removal of bipap with medications for dyspnea and anxiety. Given her prior history and use of lorazepam, will dose routinely. For now, will dose morphine prn but monitor for possible routine dosing or infusion if needed. Discussed with Lydia what to expect. Anna is likely to within hours to a day or two. Dr. Georges aware. Notified RN. (3) Pneumonia due to COVID-19 virus: (4) Severe dementia: History of Present Illness Reason for Consultation: goals of care Requesting Physician: Dr. Georges Attending Physician: Samantha Georges MD History of Present Illness 80 yo lady with HFpEF, COPD, pulmonary hypertension who had been living independently. She had been having progressive cognitive and functional decline and had recently been placed at [facility] for care. She was covid negative on admission and in quarantine for 14 days. Six days after quarantine she tested positive for covid. She has not been vaccinated. She was admitted with fever and hypoxia. She has been on bipap since yesterday with 100% O2 and O2 sats running in the 80s. She very quickly desats to the 70s when mask is removed for her to drink. She has had some hospital delirium and has pulled out multiple IVs during her hospitalization. She is restless and asking for water. She denies pain. Allergies Allergy/AdvReac Type Severity Reaction Status Date / Time atorvastatin [From Lipitor] Allergy Unknown Unknown Verified 11/19/20 01:02 Cephalosporins Allergy Unknown UNKNOWN Verified 02/19/11 15:33 cholestyramine Allergy Unknown Unknown Verified 11/19/20 01:02 levofloxacin Allergy Unknown Unknown Verified 11/19/20 01:02 niacin Allergy Unknown Unknown Verified 11/19/20 01:02 [From Niaspan Extended-Release] simvastatin [From Zocor] Allergy Unknown Unknown Verified 11/19/20 01:02 Sajleen-Bwp-Ypz Reductase Allergy Unknown muscle Verified 02/19/11 15:17 Inhibitor weakness Home Medications Medication Instructions Recorded Confirmed Type acetaminophen 325 mg tablet 650 mg PO Q4 PRN MDD 3g 11/19/20 11/19/20 History (Tylenol) albuterol sulfate 90 mcg/actuation 2 puff INHALATION Q4 PRN 11/19/20 11/19/20 History aerosol inhaler alprazolam 0.25 mg tablet 0.25 mg PO TID 11/19/20 11/19/20 History aspirin 81 mg tablet,delayed 81 mg PO DAILY 11/19/20 11/19/20 History release (Aspirin Low Dose) cholecalciferol (vitamin D3) 25 25 mcg PO DAILY 11/19/20 11/19/20 History mcg (1,000 unit) tablet (Vitamin D3) escitalopram oxalate 10 mg tablet 10 mg PO DAILY 11/19/20 11/19/20 History fluticasone furoate 100 1 ea INHALATION DAILY 11/19/20 11/19/20 History mcg-vilanterol 25 mcg/dose inhalation powder (Breo Ellipta) furosemide 40 mg tablet 40 mg PO BID 11/19/20 11/19/20 History ipratropium 0.5 mg-albuterol 3 mg 3 ml INHALATION Q4 PRN 11/19/20 11/19/20 History (2.5 mg base)/3 mL nebulization soln omeprazole 20 mg capsule,delayed 20 mg PO DAILY 11/19/20 11/19/20 History release potassium chloride 20 mEq 20 meq PO DAILY 11/19/20 11/19/20 History tablet,extended release saliva stimulant comb. no.3 1 spray MUCOUS MEMBRANE Q4 PRN 11/19/20 11/19/20 History (Biotene Moisturizing Mouth) saliva stimulant comb. 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 Beliefs That Will Affect Care: None marital status: Single Current Living Situation Comment: unknown Feels Safe at Home: Yes Assistive Devices: BiPap Review of Systems Review of Systems: [place] Symptom Assessment Scale Pain 0/3 Dyspnea 0/3 by report Anxiety 2/3 Drowsiness 0/3 Palliative Performance Score 30% Physical Exam Constitutional: restless, confused ENMT: Mouth: + dry oral mucous membranes Respiratory: + uses accessory muscles (on bipap) Cardiovascular: Rate/Rhythm: regular rate and regular rhythm Gastrointestinal (Abdomen): soft, nontender Neurologic: awake and + confused Results & Data ([facility]) Vital Signs (Past 12 Hours) Vital Signs Temp Pulse Pulse Resp BP Pulse Ox 11/20/20 12:01 96 H 30 H 86 L 11/20/20 11:50 97.5 F L 94 H 29 H 138/77 95 11/20/20 07:54 94 H 32 H 86 L 11/20/20 07:39 97.5 F L 89 32 H 114/72 81 L 11/20/20 04:42 85 85 16 91 11/20/20 03:53 98.2 F 94 H 20 137/84 83 L PG Care Time/CCT Total # of Minutes Spent Total Time Spent: 70 Total Time Spent with Patient: Total time spent is greater than 50% in coordination of care (as documented) at patient's floor/unit and/or counseling patient: goals of care, symptom management, coordination of care Coding Level of Care Code 42913 Initial Inpt Care Lvl 3 Diagnoses Acute hypoxemic respiratory failure J96.01 Palliative care encounter Z51.5 Pneumonia due to COVID-19 virus U07.1; J12.82 Severe dementia F03.90
[2020-11-20] MEDS: LORazepam 0.5 MG/1 ML VIAL IV SCH ×3 (15:27→20:18)
[2020-11-20] MEDS: GLYCOPYRROLATE 0.2 MG/ML VIAL IV PRN (20:19)
[2020-11-21] MEDS: LORazepam 0.5 MG/1 ML VIAL IV SCH ×3 (00:06→08:44)
[2020-11-21] MEDS: MoRPHine SULFATE 2 MG/ML CARP IV PRN ×6 (00:08→11:38)
[2020-11-21] MEDS: GLYCOPYRROLATE 0.2 MG/ML VIAL IV PRN ×2 (00:50→04:39)
--- NOTE | 2020-11-21 13:08 | Hospitalist Progress Note ---
Date of Service November 21, 2020 Assessment & Plan (1) Acute hypoxemic respiratory failure: Plan: Secondary to COPD exacerbation from severe COVID-19 pneumonia Failed outpatient treatment Sepsis on admission Lactic acidosis -resolved Leg swelling rule out DVT Acute on chronic hyponatremia secondary to illness Worsening diarrhea; C. difficile is negative. Hypokalemia secondary to diuretic Rx, diarrhea chronic diastolic heart failure (EF 60 to 65%, TTE 2011), equivocal volume status hypertension, BP on the lower side hyperlipidemia, on statin Rx hx CVA chronic anemia, hemoglobin close to at baseline prediabetes, no recent outpatient hemoglobin A1c Past tobacco abuse dementia Has been under comfort care Remains critical Mild to moderate shortness of breath at rest We will continue supportive care and comfort care This morning patient was awake and alert. She was pleasantly confused. Hemodynamically doing okay. Have been hypoxic in the mid 80s. Currently remains on the BiPAP. Worsening leukocytosis this morning in the setting of steroids. Patient remains afebrile. Blood cultures remain negative thus far. We will continue with remdesivir/Decadron. Appreciate pulmonary medicine input. Continue with pulmonary toilet/incentive spirometer and flutter therapy if patient can participate which is unlikely. Currently her overall prognosis is poor. Mortality risk is high. Palliative medicine has been consulted. [facility] RTC for COPD exacerbation while on BiPAP Stool C. difficile, Flagyl 1 dose now given sepsis criteria, Dificid if stool C. difficile positive LE venous Dopplers ro DVT is negative. DVT prophylaxis per Lovenox subcu DNR as per patient's prior directives. I did speak with a low reach her power of finance attorney; her niece. I did explain to her her overall poor prognosis. Will be meeting again today regarding further g oals of care discussion. Total critical care time was 50 minutes. Patient's niece requesting updates providers. Ms. Lydia Moreno, contact #[phone]. Text document was generated using [employer] voice recognition software. It may contain grammatical or spelling errors. Kindly contact undersigned for clarification of any documentation item in question. Admission and Anticipated Discharge Date Admission Date: November 19, 2020 Subjective 11/21/2020 The patient was seen and examined in telemetry unit and in Covid unit She has been under comfort care Review of Systems Review of Systems: Unobtainable due to reduced consciousness Physical Exam Physical Exam: Remains short of breath at rest Constitutional: + ill appearing Eyes: Closed Respiratory: + respiratory distress Auscultation: + diminished lung sounds, + crackles, + rales and + wheezes Cardiovascular: Rate/Rhythm: regular rate, regular rhythm and + tachycardic Gastrointestinal (Abdomen): Inspection/Auscultation: normal bowel sounds; abdomen not distended Neurologic: Acute distress secondary to shortness of breath and remains unconscious Results & Data Results & Data ([facility]) Medications Administered Current Inpatient Medications Acetaminophen (Acetaminophen 325 Mg Tab) 650 mg PO Q4 PRN PRN Reason: Fever Or Pain Stop: 12/19/20 05:30 Glycopyrrolate (Glycopyrrolate 0.2 Mg/Ml Vial) 0.2 mg IV Q4H PRN PRN Reason: secretions Stop: 12/20/20 13:11 Last Admin: 11/21/20 04:39 Dose: 0.2 mg Documented by: Promethazine HCl 6.25 mg/ (Sodium Chloride) 50.25 mls @ 201 mls/hr IV Q6H PRN PRN Reason: Nausea And Vomiting Stop: 12/19/20 05:30 Lorazepam (Ativan) 0.5 mg in 1 mls @ 1 mls/min IV Q4 APRYL Stop: 12/20/20 13:59 Last Admin: 11/21/20 08:44 Dose: 1 mls/min Documented by: Morphine Sulfate (Morphine Sulfate 2 Mg/Ml Carp) 2 mg IV Q1H PRN PRN Reason: Pain or dyspnea Stop: 12/04/20 13:11 Last Admin: 11/21/20 11:38 Dose: 2 mg Documented by:
--- NOTE | 2020-11-21 13:15 | Communication Note ---
Date of Service: November 21, 2020 Date pronouncement note; Asked to pronounce On examination No response with any stimuli No pulse, BP or respiration Pupils orally dilated and nonreactive to light She was pronounced on 11/21/2020 at 1235 hrs. The causes of as mentioned below Pneumonia due to COVID-19 virus COVID-19 virus infection COPD exacerbation Chronic diastolic heart failure Hypertension Dr Nithin Diego
--- NOTE | 2020-11-21 17:43 | Discharge Summary ---
Date of Service November 21, 2020 Admission HPI Per Admitting Provider History obtained from patient, family, and records. Limited history from patient secondary to dementia. Medical history significant for chronic diastolic heart failure (EF 60 to 65%, TTE 2011), pulmonary hypertension, hypertension, hyperlipidemia, COPD, CVA, chronic hyponatremia, chronic anemia (baseline hemoglobin 9), prediabetes, dementia, past tobacco abuse. Last confinement February 2011 for COPD exacerbation. 10 days ago, patient noted to have shortness of breath and wheezing. COVID-19 test at alf noted to be positive. Dexamethasone and DuoNeb treatment initiated at alf. "Comfort measures" requested by family just for liberal fluid intake given history of CHF as per niece. Patient did not receive COVID-19 vaccination as per her preference of one of her nieces. Last night, patient noted to be febrile, short of breath, pulse ox 60s at alf. Patient brought to the ER for evaluation. Loose stool noted at the ER. BiPAP initiated at the ER. Decadron, vancomycin and Zosyn administered at the ER. Patient denies chest pain, S OB, cough, abdominal pain symptoms. Does not know why she is in the hospital. Medical History as above Surgical History : TAHBSO, cholecystectomy Family History : Hypertension, stroke Personal/Social history : Past tobacco abuse, no EtOH intake, retired bilingual secretary, alf resident Admission Exam Per Admitting Provider Physical Exam: GENERAL: Demented, obese, respiratory distress SKIN: Pallor, warm HEENT: Pale palpebral conjunctivae, no ptosis, dry buccal mucosa, BiPAP in place NECK : Supple, no tenderness CHEST : Decreased breath sounds, occasional expiratory wheezes, no tenderness HEART : Tachycardic, no obvious murmurs ABDOMEN: Some distention, nontender EXTREMITIES : Bilateral LE swelling, no LE tenderness, no other conspicuous deformities noted NEUROLOGIC : Demented, slightly hard of hearing, no other gross focality Principal Diagnosis The Patient : Pneumonia due to COVID-19 virus COVID-19 virus infection COPD, chronic diastolic heart failure, hypertension Discharge Data Allergies Allergy/AdvReac Type Severity Reaction Status Date / Time atorvastatin [From Lipitor] Allergy Unknown Unknown Verified 11/19/20 01:02 Cephalosporins Allergy Unknown UNKNOWN Verified 02/19/11 15:33 cholestyramine Allergy Unknown Unknown Verified 11/19/20 01:02 levofloxacin Allergy Unknown Unknown Verified 11/19/20 01:02 niacin Allergy Unknown Unknown Verified 11/19/20 01:02 [From Niaspan Extended-Release] simvastatin [From Zocor] Allergy Unknown Unknown Verified 11/19/20 01:02 [id number]-Kyb Reductase Allergy Unknown muscle Verified 02/19/11 15:17 Inhibitor weakness Consultations 11/19/20 02:10 ED Decision to Admit Stat 11/19/20 05:31 Consult Pulmonology Routine 11/19/20 14:09 Consult Palliative Care Routine Ordered Studies 11/19/20 05:31 US venous doppler LE Urgent Hospital Course (1) Acute hypoxemic respiratory failure: Secondary to COPD exacerbation from severe COVID-19 pneumonia Failed outpatient treatment Sepsis on admission Lactic acidosis -resolved Leg swelling rule out DVT Acute on chronic hyponatremia secondary to illness Worsening diarrhea; C. difficile is negative. Hypokalemia secondary to diuretic Rx, diarrhea chronic diastolic heart failure (EF 60 to 65%, TTE 2011), equivocal volume status hypertension, BP on the lower side hyperlipidemia, on statin Rx hx CVA chronic anemia, hemoglobin close to at baseline prediabetes, no recent outpatient hemoglobin A1c Past tobacco abuse dementia Has been under comfort care Remains critical Mild to moderate shortness of breath at rest We will continue supportive care and comfort care This morning patient was awake and alert. She was pleasantly confused. Hemodynamically doing okay. Have been hypoxic in the mid 80s. Currently remains on the BiPAP. Worsening leukocytosis this morning in the setting of steroids. Patient remains afebrile. Blood cultures remain negative thus far. We will continue with remdesivir/Decadron. Appreciate pulmonary medicine input. Continue with pulmonary toilet/incentive spirometer and flutter therapy if patient can participate which is unlikely. Currently her overall prognosis is poor. Mortality risk is high. Palliative medicine has been consulted. [facility] RTC for COPD exacerbation while on BiPAP Stool C. difficile, Flagyl 1 dose now given sepsis criteria, Dificid if stool C. difficile positive LE venous Dopplers ro DVT is negative. DVT prophylaxis per Lovenox subcu DNR as per patient's prior directives. I did speak with a low reach her power of immigration attorney; her niece. I did explain to her her overall poor prognosis. Will be meeting again today regarding further goals of care discussion. Total critical care time was 50 minutes. Patient's niece requesting updates providers. Pauly Lydia Moreno, contact #[phone]. Text document was generated using [employer] voice recognition software. It may contain grammatical or spelling errors. Kindly contact undersigned for clarification of any documentation item in question. Total Time Total Time Spent Total Time Spent (In Minutes): 35 minutes Discharge Plan Discharge Items Patient Disposition: Other Date/Time: 11/21/20 12:35
== END 2020-11-21 13:30 | disposition expired | DRG 871 ==
LOC: ED 00:35 → SUATTDRO 03:10 → 2E 03:10
DX: Z87.891 Personal history of nicotine dependence; J96.01 Acute respiratory failure with hypoxia; J96.12 Chronic respiratory failure with hypercapnia; D63.8 Anemia in other chronic diseases classified elsewhere; R73.03 Prediabetes; Z79.899 Other long term (current) drug therapy; E66.9 Obesity, unspecified; A41.89 Other specified sepsis; I11.0 Hypertensive heart disease with heart failure; T50.2X5A Adverse effect of carbonic-anhydrase inhibitors, benzothiadiazides and other diuretics, initial encounter; Z68.31 Body mass index [BMI] 31.0-31.9, adult; Z82.3 Family history of stroke; F03.90 Unspecified dementia, unspecified severity, without behavioral disturbance, psychotic disturbance, mood disturbance, and anxiety; E87.6 Hypokalemia; E87.4 Mixed disorder of acid-base balance; F41.9 Anxiety disorder, unspecified; E87.1 Hypo-osmolality and hyponatremia; I27.20 Pulmonary hypertension, unspecified; Z82.49 Family history of ischemic heart disease and other diseases of the circulatory system; E78.5 Hyperlipidemia, unspecified; Z66 Do not resuscitate; Z88.8 Allergy status to other drugs, medicaments and biological substances; Z51.5 Encounter for palliative care; I50.32 Chronic diastolic (congestive) heart failure; Z88.1 Allergy status to other antibiotic agents; Z51.81 Encounter for therapeutic drug level monitoring; Z79.82 Long term (current) use of aspirin; U07.1 COVID-19; R19.7 Diarrhea, unspecified; J12.82 Pneumonia due to coronavirus disease 2019; J44.1 Chronic obstructive pulmonary disease with (acute) exacerbation; Z86.73 Personal history of transient ischemic attack (TIA), and cerebral infarction without residual deficits; M79.89 Other specified soft tissue disorders